=== PATIENT | female | born 1945 | race Caucasian/White ===

== ENCOUNTER 2020-07-30 11:37 | Observation (INO) | payer MEDICARE ==
[~2020-07-30] VITALS: Ht 157.5 cm; Wt 88.6 kg
[~2020-07-30 11:37] MED LIST: ALBU2.5V8 IH; ALLO300T PO; AMLO-186 PO; ASPI325T8 PO; CALC-128 PO; CALC600T60 PO; CHOL100014 PO; CHOL500016 PO; CLOP75TA57 PO; DOCU100T11 PO; GLYB6TAB3 PO; INSU100V8 SQ; LINA5TAB4 PO; LISI20TA18 PO; MELO7.5T29 PO; METF10007 PO; METF500T16 PO; MONT10TA80 PO; MORP10CA2 PO; MULT-246 PO; OMEG1CAP50 PO; OXYC1TAB22 PO; SIMV40TA18 PO; TRAM50TA PO; TRIGINTA
[2020-07-30 13:16] VITALS: BP 120/77
[2020-07-30] MEDS ORDERED: traMADol 50 MG TABLET PO PRN (13:45)
[2020-07-30 14:33] LABS: BASO # 0.1 x10^3/uL (0.0-0.2); BASO % 1 % (0-3); EOS # 0.1 x10^3/uL (0.0-0.7); EOS % 1 % (0-3); HEMATOCRIT 33.8 % (36.0-47.0); HEMOGLOBIN 10.3 g/dL (12.0-15.5); LYMPH # 2.2 x10^3/uL (1.0-4.8); LYMPH % 22 % (24-48); MEAN CORPUSCULAR HEMOGLOBIN 27 pg (25-35); MEAN CORPUSCULAR HGB CONC 31 g/dL (31-37); MEAN CORPUSCULAR VOLUME 90 fL (79-100); MONO # 0.8 x10^3/uL (0.0-1.1); MONO % 8 % (0-9); NEUT # 6.9 x10^3uL (1.8-7.7); NEUT % 69 % (31-73); PLATELET COUNT 531 x10^3/uL (140-400); RED BLOOD COUNT 3.75 x10^6/uL (3.50-5.40); RED CELL DISTRIBUTION WIDTH 19.3 % (11.5-14.5); WHITE BLOOD COUNT 10.1 x10^3/uL (4.0-11.0)
--- NOTE | 2020-07-30 14:44 | RAD ---
Chest, PA and Lateral: Technique: PA and lateral views of the chest were obtained. History: Syncope. Comparison: None. Findings: Mild cardiomegaly. Mild prominent bilateral interstitial lung markings likely interstitial infiltrate s or edema.. Moderate degenerative thoracic spine. IMPRESSION: Mild prominent bilateral interstitial lung markings likely interstitial infiltrates or edema. Electronically signed by: Rodríguez Yao MD (07/30/2020 2:42 PM) [id number]
[2020-07-30 14:46] LABS: ALBUMIN 2.3 g/dL (3.4-5.0); ALBUMIN/GLOBULIN RATIO 0.4 (1.0-1.7); CALCIUM 10.2 mg/dL (8.5-10.1); CREATININE 1.2 mg/dL (0.6-1.0); GFR 44.2; TOTAL BILIRUBIN 0.2 mg/dL (0.2-1.0); TOTAL PROTEIN 7.8 g/dL (6.4-8.2)
--- NOTE | 2020-07-30 15:15 | RAD ---
EXAMINATION: CT HEAD/BRAIN WO (CT HEAD WITHOUT IV CONTRAST) CLINICAL HISTORY: Syncope and collapse TECHNIQUE: Serial axial images without IV contrast were obtained from the vertex to the foramen magnu m. CT Dose Reduction Employed: One or more of the following individualized dose reduction techniques wer e utilized for this examination: 1. Automated exposure control 2. Adjustment of the mA and/or kV ac cording to patient size 3. Use of iterative reconstruction technique. COMPARISON: 06/11/2014 FINDINGS: Acute Change: No evidence of an acute infarct or other acute parenchymal process. Hemorrhage: No evidence of acute intracranial hemorrhage. Mass Lesion/Mass Effect: No evidence of intracranial mass or extraaxial fluid collection. No signific ant mass effect. Chronic Change: Hypoattenuation in the anterior superior cortex and subcortical white matter of the r ight frontal lobe, likely related to remote infarct but new since the comparison study. Scattered pat brianda foci of hypoattenuation in the supratentorial white matter, nonspecific but likely represents mil d microvascular ischemia. Atherosclerotic calcification of the bilateral carotid siphons. Parenchyma: Mild generalized volume loss. Parenchyma otherwise within normal limits for age. Ventricles: Ventricular enlargement concordant with degree of parenchymal volume loss. Paranasal Sinuses and Skull Base: Visualized paranasal sinuses clear. Visualized skull base and soft tissues unremarkable. IMPRESSION: No evidence of acute intracranial abnormality. Electronically signed by: Jerome Wade DO (07/30/2020 3:13 PM) [facility]
[2020-07-30] MEDS ORDERED: AMLO-187 PO (15:21)
[2020-07-30] MEDS ORDERED: ANAS1TAB47 PO (15:21)
--- NOTE | 2020-07-30 15:55 | EKG ---
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
[2020-07-30] MEDS ORDERED: VIT1TABL32 PO (16:42)
[2020-07-30] MEDS ORDERED: DOCU100C28 PO (16:42)
[2020-07-30] MEDS ORDERED: FERR159T3 PO (16:42)
[2020-07-30] MEDS ORDERED: CALC-31 PO (16:42)
[2020-07-30] MEDS ORDERED: POTA15TA9 PO (16:42)
[2020-07-30] MEDS ORDERED: BUTA1CAP27 PO (16:42)
[2020-07-30] MEDS ORDERED: AMIT10TA PO (16:42)
[2020-07-30] MEDS ORDERED: FENT1PAT15 TP (16:48)
[2020-07-30] MEDS: metFORMIN 500 MG TABLET PO SCH (18:30)
[2020-07-30] MEDS: DOCUSATE SODIUM 100 MG CAPSULE PO SCH (18:30)
[2020-07-30 19:32] VITALS: BP 108/53
[2020-07-30 19:53] LABS: BILIRUBIN,URINE NEG (NEG); CLARITY,URINE CLOUDY; COLOR,URINE STRAW; GLUCOSE,URINE NEG (NEG); NITRITE,URINE NEG (NEG); RBC,URINE >40 /HPF (0-2); UROBILINOGEN,URINE 0.2 mg/dL (0.2 mg/dL); WBC,URINE >40 /HPF (0-4)
[2020-07-30 19:54] LABS: BACTERIA,URINE MANY /HPF (0-FEW); SQUAMOUS EPITHELIAL CELL,UR FEW /LPF
[2020-07-30] MEDS ORDERED: MORPHINE SULFATE 10 MG PO SCH (21:00)
[2020-07-30] MEDS ORDERED: SIMVASTATIN 40 MG TABLET. PO SCH (21:00)
[2020-07-30] MEDS: AMITRIPTYLINE HCL 10 MG TABLET PO SCH (21:17)
[2020-07-30] MEDS: POTASSIUM CITRATE 10 MEQ TABLET.ER PO SCH (21:17)
[2020-07-30] MEDS: INSULIN GLARGINE SYRINGE. SQ SCH (21:19)
[2020-07-30] MEDS: BUTALB/APAP/CAFEIN 50/325/40MG TABLET. PO SCH (21:19)
[2020-07-30 23:08] VITALS: BP 99/66
[2020-07-31 00:07] LABS: HEMOGLOBIN A1C 5.9 % (4.8-5.6)
[2020-07-31 06:24] LABS: BASO # 0.1 x10^3/uL (0.0-0.2); BASO % 1 % (0-3); EOS # 0.2 x10^3/uL (0.0-0.7); EOS % 3 % (0-3); HEMATOCRIT 30.9 % (36.0-47.0); HEMOGLOBIN 9.5 g/dL (12.0-15.5); LYMPH # 2.5 x10^3/uL (1.0-4.8); LYMPH % 27 % (24-48); MEAN CORPUSCULAR HEMOGLOBIN 27 pg (25-35); MEAN CORPUSCULAR HGB CONC 31 g/dL (31-37); MEAN CORPUSCULAR VOLUME 89 fL (79-100); MONO % 11 % (0-9); NEUT # 5.5 x10^3uL (1.8-7.7); NEUT % 59 % (31-73); PLATELET COUNT 459 x10^3/uL (140-400); RED BLOOD COUNT 3.48 x10^6/uL (3.50-5.40); RED CELL DISTRIBUTION WIDTH 18.8 % (11.5-14.5); WHITE BLOOD COUNT 9.4 x10^3/uL (4.0-11.0)
[2020-07-31 07:35] VITALS: BP 107/71
[2020-07-31] MEDS: metFORMIN 500 MG TABLET PO SCH ×2 (08:18→17:08)
[2020-07-31] MEDS: MULTIVITAMIN I-VITE TABLET. PO SCH (08:18)
[2020-07-31] MEDS: amLODIPine BESYLATE 10 MG TABLET PO SCH (08:18)
[2020-07-31] MEDS: MONTELUKAST 10 MG TABLET. PO SCH (08:18)
[2020-07-31] MEDS: CLOPIDOGREL BISULFATE 75 MG TABLET PO SCH (08:19)
[2020-07-31] MEDS: POTASSIUM CITRATE 10 MEQ TABLET.ER PO SCH ×3 (08:19→21:00)
[2020-07-31] MEDS: ALLOPURINOL 300 MG TABLET. PO SCH (08:19)
[2020-07-31] MEDS: BUTALB/APAP/CAFEIN 50/325/40MG TABLET. PO SCH ×2 (08:19→21:05)
[2020-07-31] MEDS: LISINOPRIL 20 MG TABLET PO SCH (08:20)
[2020-07-31] MEDS: FERROUS SULFATE 325 MG TABLET. PO SCH (08:21)
--- NOTE | 2020-07-31 08:33 | PDOC2 ---
CARDIAC CONSULT DATE OF CONSULT DOS: DATE: 07/31/20 TIME: 08:28 REASON FOR CONSULT Reason for Consult Elevated troponin REFERRING PHYSICIAN Referring Physician Dr. Hoyos SOURCE Source: Chart review, Patient HPI History of Present Illness This is a 74 yo male who was a direct admit from Dr. Hoyos's office secondary to weakness and fall. Troponin noted to be mildly elevated, which prompted this consult. Patient reports weakness in her bilateral legs since Wednesday. Has had a couple of falls. Reports that her legs give out. Denies any precipitating dizziness or LOC. Patient reports that she has had similar symptoms associated with UTI two times prior. Was reportedly orthostatic in office from sitting to standing. She denies any chest pain, palpitations, dizziness, diaphoresis, or nausea/vomiting. UA notable for UTI. PAST MEDICAL HISTORY Cardiovascular: HTN, hyperipidemia, Other (carotid disease) CENTRAL NERVOUS SYSTEM: CVA Heme/Onc: Cancer (breast, bladder) Musculoskeletal: Osteoarthritis Renal/: UTI Endocrine: Diabetes PAST SURGICAL HISTORY Past Surgical History: Hysterectomy FAMILY HISTORY Family History: Cancer, Diabetes, Hypertension SOCIAL HISTORY Smoke: Quit (3 years ago ) ALCOHOL: none Drugs: None CURRENT MEDICATIONS Current Medications Current Medications Allopurinol (Zyloprim) 300 mg DAILY PO Last administered on 07/31/20at 08:19; Start 07/31/20 at 09:00 Amlodipine Besylate (Norvasc) 5 mg DAILY PO ; Start 07/31/20 at 09:00; Status Cancel Clopidogrel Bisulfate (Plavix) 75 mg DAILY PO Last administered on 07/31/20at 08:19; Start 07/31/20 at 09:00 Insulin Glargine (Lantus Syringe) 10 unit HS SQ Last administered on 07/30/20at 21:19; Start 07/30/20 at 21:00 Linagliptin (Tradjenta) 5 mg DAILY PO ; Start 07/31/20 at 09:00; Status Cancel Lisinopril (Prinivil) 20 mg DAILY PO Last administered on 07/31/20at 08:20; Start 07/31/20 at 09:00 Metformin HCl (Glucophage) 1,000 mg BIDWMEALS PO Last administered on 07/31/20at 08:18; Start 07/30/20 at 17:00 Montelukast Sodium (Singulair) 10 mg DAILY PO Last administered on 07/31/20at 08:18; Start 07/31/20 at 09:00 Simvastatin (Zocor) 40 mg QHS PO ; Start 07/30/20 at 21:00; Status Cancel Tramadol HCl (Ultram) 50 mg PRN BID PRN PO PAIN; Start 07/30/20 at 13:45; Status Cancel Calcium Carbonate/ Glycine (Oscal) 1,000 mg DAILY PO ; Start 07/31/20 at 09:00; Status Cancel Vitamin D (Vitamin D3) 5,000 unit DAILY PO ; Start 07/31/20 at 09:00; Status Cancel Glyburide (Glynase) 6 mg BIDWMEALS PO Last administered on 07/31/20at 08:18; Start 07/30/20 at 17:00 Non-Formulary Medication (Morphine Sulfate (Morphine Sulfate Er)) 10 mg BID PO ; Start 07/30/20 at 21:00; Status UNV Amitriptyline HCl (Elavil) 30 mg QHS PO Last administered on 07/30/20at 21:17; Start 07/30/20 at 21:00 Amlodipine Besylate (Norvasc) 10 mg DAILY PO Last administered on 07/31/20at 08:18; Start 07/31/20 at 09:00 Anastrozole (Arimidex) 1 mg DAILY PO ; Start 07/31/20 at 09:00 Docusate Sodium (Colace) 300 mg DAILY16 PO Last administered on 07/30/20at 18:30; Start 07/30/20 at 17:30 Fentanyl (Duragesic 25mcg/ Hr) 1 patch Q3DAYS TD ; Start 08/01/20 at 09:00 Multivitamins/ Minerals (I-Gerri) 1 tab DAILY PO Last administered on 07/31/20at 08:18; Start 07/31/20 at 09:00 Acetaminophen/ Butalbital/ Caffeine (Fioricet) 1 tab BID PO Last administered on 07/31/20at 08:19; Start 07/30/20 at 21:00 Calcium/Vitamin D (Oscal D 500mg/ 200uts) 1 tab DAILY16 PO ; Start 07/31/20 at 16:00 Ferrous Sulfate (Feosol) 325 mg DAILY PO Last administered on 07/31/20at 08:21; Start 07/31/20 at 09:00 Potassium Citrate (Urocit-K) 10 meq BID PO ; Start 07/30/20 at 21:00 Ceftriaxone Sodium 1 gm/ Sodium Chloride 50 ml @ 100 mls/hr Q24H IV Last administered on 07/30/20at 21:20; Start 07/30/20 at 21:00 Active Scripts Active Reported FENTANYL 25mcg/hr (Fentanyl) 1 Each Patch.td72 1 Patch TP Q3DAYS Calcium 500 + D Tablet (Calcium Carbonate/Vitamin D3) 1 Each Tablet 1 Tab PO DAILY16 30 Days Docusate Sodium 100 Mg Capsule 3 Cap PO DAILY16 30 Days Hhfeflol-Bvhqsehmufofa-Wzzg Cp (Butalb/Acetaminophen/Caffeine) 1 Each Capsule 1 Cap PO BID 30 Days Potassium Citrate Er (Potassium Citrate) 15 Meq Tablet.er 10 Meq PO BID Amitriptyline Hcl 10 Mg Tablet 3 Tab PO QHS Iron (Ferrous Sulfate, Dried) 159 Mg Tablet.er 65 Mg PO DAILY Ocuvite Tablet (Vit A,C & E/Lutein/Minerals) 1 Each Tablet 1 Tab PO DAILY 30 Da ys Arimidex (Anastrozole) 1 Mg Tablet 1 Mg PO DAILY Amlodipine Besylate 10 Mg Tablet 1 Tab PO DAILY Fish Oil 1,000 Mg Softgel ([place]-3 Fatty Acids/Fish Oil) 1 Each Capsule 1 Each PO BID Metformin Hcl 500 Mg Tablet 2 Tab PO BID Plavix (Clopidogrel Bisulfate) 75 Mg Tablet 1 Tab PO DAILY Allopurinol 300 Mg Tablet 1 Tab PO DAILY Multi-Vitamin Daily (Multivitamin) 1 Each Tablet 1 Each PO Lantus (Insulin Glargine,Hum.rec.anlog) 100 Unit/1 Ml Vial 10 Unit SQ HS Montelukast Sodium Tablet (Montelukast Sodium) 10 Mg Tablet 1 Tab PO DAILY Lisinopril 20 Mg Tablet 1 Tab PO DAILY Glyburide Micronized (Glyburide,Micronized) 6 Mg Tablet 6 Mg PO BID ALLERGIES Allergies: Coded Allergies: trazodone (Verified Allergy, Intermediate, Hives, 03/30/14) carisoprodol (Verified Allergy, Mild, hives, 03/30/14) celecoxib (Verified Allergy, Mild, hives, 03/30/14) ciprofloxacin (Verified Allergy, Mild, hives, 03/30/14) codeine (Verified Allergy, Mild, hives, 03/30/14) ROS Review of Systems 14 point ROS conducted with pertinent positives noted above in HPI PHYSICAL EXAM General: Alert, Oriented X3, Cooperative, No acute distress HEENT: Atraumatic, Mucous membr. moist/pink Lungs: Clear to auscultation Heart: Regular rate Abdomen: Soft, No tenderness Extremities: No edema, Normal pulses Skin: No breakdown Neuro: Normal speech, Sensation intact Psych/Mental Status: Mental status NL, Mood NL MUSCULOSKELETAL: Osteoarthritic changes both hands VITALS Vital Signs Vital Signs Date Time Temp Pulse Resp B/P (MAP) Pulse Ox O2 Delivery O2 Flow Rate FiO2 07/31/20 08:20 85 107/71 07/31/20 07:35 98.3 20 98 Room Air LABS LABS Laboratory Tests Test 07/30/20 14:23 07/30/20 18:55 07/30/20 19:37 07/30/20 20:30 White Blood Count 10.1 x10^3/uL (4.0-11.0) Red Blood Count 3.75 x10^6/uL (3.50-5.40) Hemoglobin 10.3 g/dL (12.0-15.5) Hematocrit 33.8 % (36.0-47.0) Mean Corpuscular Volume 90 fL (79-100) Mean Corpuscular Hemoglobin 27 pg (25-35) Mean Corpuscular Hemoglobin Concent 31 g/dL (31-37) Red Cell Distribution Width 19.3 % (11.5-14.5) Platelet Count 531 x10^3/uL (140-400) Neutrophils (%) (Auto) 69 % (31-73) Lymphocytes (%) (Auto) 22 % (24-48) Monocytes (%) (Auto) 8 % (0-9) Eosinophils (%) (Auto) 1 % (0-3) Basophils (%) (Auto) 1 % (0-3) Neutrophils # (Auto) 6.9 x10^3uL (1.8-7.7) Lymphocytes # (Auto) 2.2 x10^3/uL (1.0-4.8) Monocytes # (Auto) 0.8 x10^3/uL (0.0-1.1) Eosinophils # (Auto) 0.1 x10^3/uL (0.0-0.7) Basophils # (Auto) 0.1 x10^3/uL (0.0-0.2) D-Dimer (Bhavna) 2.88 mg/L (0.00-0.50) Sodium Level 137 mmol/L (136-145) Potassium Level 5.0 mmol/L (3.5-5.1) Chloride Level 105 mmol/L (98-107) Carbon Dioxide Level 18 mmol/L (21-32) Anion Gap 14 (6-14) Blood Urea Nitrogen 43 mg/dL (7-20) Creatinine 1.2 mg/dL (0.6-1.0) Estimated GFR (Cockcroft-Gault) 44.2 BUN/Creatinine Ratio 36 (6-20) Glucose Level 160 mg/dL (70-99) Hemoglobin A1c 5.9 % (4.8-5.6) Calcium Level 10.2 mg/dL (8.5-10.1) Total Bilirubin 0.2 mg/dL (0.2-1.0) Aspartate Amino Transf (AST/SGOT) 37 U/L (15-37) Alanine Aminotransferase (ALT/SGPT) 31 U/L (14-59) Alkaline Phosphatase 215 U/L (46-116) Creatine Kinase 298 U/L (26-192) Troponin I Quantitative < 0.017 ng/mL (0-0.055) 0.326 ng/mL (0-0.055) ZP-Jqn-Y-Type Natriuretic Peptide 1807 pg/mL (0-124) Total Protein 7.8 g/dL (6.4-8.2) Albumin 2.3 g/dL (3.4-5.0) Albumin/Globulin Ratio 0.4 (1.0-1.7) Urine Collection Type Unknown Urine Color Straw Urine Clarity Cloudy Urine pH 5.5 Urine Specific [place] 1.015 Urine Protein 100 mg/dl (NEG-TRACE) Urine Glucose (UA) Neg mg/dL (NEG) Urine Ketones (Stick) Trace mg/dL (NEG) Urine Blood Mod (NEG) Urine Nitrite Neg (NEG) Urine Bilirubin Neg (NEG) Urine Urobilinogen Dipstick 0.2 mg/dL (0.2 mg/dL) Urine Leukocyte Esterase Large (NEG) Urine RBC >40 /HPF (0-2) Urine WBC >40 /HPF (0-4) Urine Squamous Epithelial Cells Few /LPF Urine Bacteria Many /HPF (0-FEW) Glucose (Fingerstick) 204 mg/dL (70-99) Test 07/31/20 05:54 07/31/20 07:49 White Blood Count 9.4 x10^3/uL (4.0-11.0) Red Blood Count 3.48 x10^6/uL (3.50-5.40) Hemoglobin 9.5 g/dL (12.0-15.5) Hematocrit 30.9 % (36.0-47.0) Mean Corpuscular Volume 89 fL (79-100) Mean Corpuscular Hemoglobin 27 pg (25-35) Mean Corpuscular Hemoglobin Concent 31 g/dL (31-37) Red Cell Distribution Width 18.8 % (11.5-14.5) Platelet Count 459 x10^3/uL (140-400) Neutrophils (%) (Auto) 59 % (31-73) Lymphocytes (%) (Auto) 27 % (24-48) Monocytes (%) (Auto) 11 % (0-9) Eosinophils (%) (Auto) 3 % (0-3) Basophils (%) (Auto) 1 % (0-3) Neutrophils # (Auto) 5.5 x10^3uL (1.8-7.7) Lymphocytes # (Auto) 2.5 x10^3/uL (1.0-4.8) Monocytes # (Auto) 1.0 x10^3/uL (0.0-1.1) Eosinophils # (Auto) 0.2 x10^3/uL (0.0-0.7) Basophils # (Auto) 0.1 x10^3/uL (0.0-0.2) Creatine Kinase 136 U/L (26-192) Troponin I Quantitative 0.272 ng/mL (0-0.055) Glucose (Fingerstick) 94 mg/dL (70-99) ECHOCARDIOGRAM Echocardiogram 06/02/17 - 2-D + DOPPLER ECHOCARDIOGRAM Echocardiographic Findings Left Ventricle Normal size and shape. Mild concentric hypertrophy. Normal ejection fraction. Grade I (mild) left ventricular diastolic dysfunction. Right Ventricle Normal size and ejection fraction. Moderate hypertrophy. Left Atrium Normal size. An interatrial septal aneurysm is present. Right Atrium Normal size. IVC/SVC Normal central venous pressure (0-5 mm Hg). Mitral Valve Normal valve structure. No stenosis. Trace regurgitation. Tricuspid Valve Normal valve structure. No stenosis. Trace regurgitation. Aortic Valve Normal valve structure. No stenosis. No regurgitation. Pulmonary Normal valve structure. No regurgitation. Aorta Normal aorta. Pericardium Pericardium is normal. No pericardial effusion. ASSESSMENT/PLAN Assessment/Plan 1. Weakness, falls 2. Orthostatic hypotension 3. CARA 4. Mild troponin elevation; peak 0.3. Most probably type II, demand ischemia. CP free. EKG without significant acute changes as compared to previous in 05/2014. [facility] with [facility] 5. Hypertension; low end 6. Hyperlipidemia 7. Diabetes, II 8. H/o CVA 9. Elevated d-dimer; VQ scan with low probability for PE 10. UTI Recommendations Repeat orthos IV fluid bolus Encouraged adequate oral hydration Echo to assess LV systolic function; this can be conducted as an outpatient Ongoing treatment of UTI Secondary prevention Consider outpatient ischemic evaluation given risk factors JANUARY HERNANDEZ APRN July 31, 2020 08:33
--- NOTE | 2020-07-31 08:40 | RAD ---
NM LUNG PERFUSION SCAN History:Reason: + d dimer s oa / Spl. Instructions: / History: Comparison: Chest x-ray July 30, 2020 Findings: Perfusion examination was performed. Perfusion images were acquired after the patient was i njected with 5.5 mCi of technetium 99m MAA. Left lower lung matched perfusion defect related to cardiomegaly. No medium or large mismatch perfusi on defects identified comparison to chest x-ray. Impression: 1. Low probability for pulmonary embolic disease. Electronically signed by: Tony Hernandez DO (07/31/2020 8:37 AM) [id number]
[2020-07-31] MEDS ORDERED: LINAGLIPTIN 5 MG TABLET PO SCH (09:00)
[2020-07-31] MEDS ORDERED: amLODIPine BESYLATE 5 MG TABLET PO SCH (09:00)
[2020-07-31] MEDS ORDERED: IV NORMAL SALINE 500ML 500 ML IV ONE (09:00)
[2020-07-31] MEDS ORDERED: CHOLECALCIFEROL (VITAMIN D3) 1,000 UNIT TABLET PO SCH (09:00)
[2020-07-31] MEDS ORDERED: CALCIUM CARBONATE 500 MG TABLET PO SCH (09:00)
--- NOTE | 2020-07-31 10:49 | EKG ---
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
[2020-07-31] MEDS: ANASTROZOLE 1 MG TABLET PO SCH (10:56)
[2020-07-31 11:25] VITALS: BP 103/69
[2020-07-31 11:26] VITALS: BP_SYST 134; BP_SYST 142; BP_DIAS 88; BP_DIAS 89
[2020-07-31 14:50] VITALS: BP 120/67
[2020-07-31] MEDS ORDERED: CALCIUM CARB/VIT D3 500/200 TABLET PO SCH (16:00)
[2020-07-31] MEDS: DOCUSATE SODIUM 100 MG CAPSULE PO SCH (16:36)
[2020-07-31] MEDS: LACTOBACILLUS RHAMNOSUS GG 1 CAPSULE. PO SCH (21:04)
[2020-07-31] MEDS: AMITRIPTYLINE HCL 10 MG TABLET PO SCH (21:04)
[2020-07-31 21:10] VITALS: BP 126/76
[2020-07-31] MEDS: INSULIN GLARGINE SYRINGE. SQ SCH (21:28)
--- NOTE | 2020-07-31 22:59 | PN ---
DATE: 07/31/2020 SUBJECTIVE: Patient is a 74-year-old female with multiple falls here in the last week or so, extreme weakness in her legs, unable to support her weight. The patient otherwise says she is feeling a little better this morning, but still very weak, not able to support herself. PHYSICAL EXAMINATION: VITAL SIGNS: Blood pressure 142/89 and setting was 134/88, pulse; however, went from staying about 110 on the average, pulse ox on room air 93%, respiratory rate 20, afebrile. GENERAL: The patient is alert and oriented, somewhat pale appearing. LUNGS: Diminished coarse breath sounds throughout. CARDIOVASCULAR: Regular sinus rhythm, occasional dropped beat. ABDOMEN: Soft, protuberant. Some diffuse tenderness. EXTREMITIES: Marked atrophy to the lower extremities with poor muscle tone there. LABORATORY DATA: The patient's labs have been basically showing a slight anemia at 9.5 and 30, platelets are elevated at 460, roughly increased monocytes. Chemistries - 159 blood sugar. Troponins have been elevated to 0.272. Cardiology is aware of these. A1c 5.9. BNP of 1800. BUN and creatinine [address] of the head unremarkable. Pulmonary perfusion scan negative. Chest x-ray shows increase in vascular congestion. The patient otherwise notes some improvement, but still very weak, not able to review PT, OT report. IMPRESSION: Therefore, generalized weakness, multiple falls, sinus tachycardia, type 2 diabetes, morbid obesity, severe protein malnutrition, leukorrhea, urinary tract infection, elevated D-dimer but VQ was noted to be negative. PLAN: We will continue on IV antibiotic therapy. Cardiology is to review the patient and make further evaluation on her in that regard and PT, OT continues to help refine the strength in her legs. DEIDRA DR: Ling TID: [id number]
[2020-08-01 07:00] VITALS: BP 115/75
--- NOTE | 2020-08-01 07:58 | PDOC ---
CARDIO Progress Notes Date & Time Date of Service DATE: 08/01/20 TIME: 07:53 Time of Evaluation 07:53 Subjective Notes feeling better today. No chest pain, shortness of breath Vitals Vitals Vital Signs Date Time Temp Pulse Resp B/P (MAP) Pulse Ox O2 Delivery O2 Flow Rate FiO2 07/31/20 21:10 98.5 91 20 126/76 (93) 97 Room Air Weight Weight [ ] Input and Output I.O. Intake and Output 08/01/20 07:00 Intake Total 1230 ml Output Total 1 ml Balance 1229 ml Intake Oral 1180 ml IV Total 50 ml Output Urine Total 1 ml # Voids 6 # Bowel Movements 2 Laboratory Labs Laboratory Tests Test 07/30/20 14:23 07/30/20 18:55 07/30/20 19:37 07/30/20 20:30 White Blood Count 10.1 x10^3/uL (4.0-11.0) Red Blood Count 3.75 x10^6/uL (3.50-5.40) Hemoglobin 10.3 g/dL (12.0-15.5) Hematocrit 33.8 % (36.0-47.0) Mean Corpuscular Volume 90 fL (79-100) Mean Corpuscular Hemoglobin 27 pg (25-35) Mean Corpuscular Hemoglobin Concent 31 g/dL (31-37) Red Cell Distribution Width 19.3 % (11.5-14.5) Platelet Count 531 x10^3/uL (140-400) Neutrophils (%) (Auto) 69 % (31-73) Lymphocytes (%) (Auto) 22 % (24-48) Monocytes (%) (Auto) 8 % (0-9) Eosinophils (%) (Auto) 1 % (0-3) Basophils (%) (Auto) 1 % (0-3) Neutrophils # (Auto) 6.9 x10^3uL (1.8-7.7) Lymphocytes # (Auto) 2.2 x10^3/uL (1.0-4.8) Monocytes # (Auto) 0.8 x10^3/uL (0.0-1.1) Eosinophils # (Auto) 0.1 x10^3/uL (0.0-0.7) Basophils # (Auto) 0.1 x10^3/uL (0.0-0.2) D-Dimer (Bhavna) 2.88 mg/L (0.00-0.50) Sodium Level 137 mmol/L (136-145) Potassium Level 5.0 mmol/L (3.5-5.1) Chloride Level 105 mmol/L (98-107) Carbon Dioxide Level 18 mmol/L (21-32) Anion Gap 14 (6-14) Blood Urea Nitrogen 43 mg/dL (7-20) Creatinine 1.2 mg/dL (0.6-1.0) Estimated GFR (Cockcroft-Gault) 44.2 BUN/Creatinine Ratio 36 (6-20) Glucose Level 160 mg/dL (70-99) Hemoglobin A1c 5.9 % (4.8-5.6) Calcium Level 10.2 mg/dL (8.5-10.1) Total Bilirubin 0.2 mg/dL (0.2-1.0) Aspartate Amino Transf (AST/SGOT) 37 U/L (15-37) Alanine Aminotransferase (ALT/SGPT) 31 U/L (14-59) Alkaline Phosphatase 215 U/L (46-116) Creatine Kinase 298 U/L (26-192) Troponin I Quantitative < 0.017 ng/mL (0-0.055) 0.326 ng/mL (0-0.055) EU-Xeo-F-Type Natriuretic Peptide 1807 pg/mL (0-124) Total Protein 7.8 g/dL (6.4-8.2) Albumin 2.3 g/dL (3.4-5.0) Albumin/Globulin Ratio 0.4 (1.0-1.7) Thyroid Stimulating Hormone (TSH) 0.744 uIU/mL (0.358-3.740) Urine Collection Type Unknown Urine Color Straw Urine Clarity Cloudy Urine pH 5.5 Urine Specific [place] 1.015 Urine Protein 100 mg/dl (NEG-TRACE) Urine Glucose (UA) Neg mg/dL (NEG) Urine Ketones (Stick) Trace mg/dL (NEG) Urine Blood Mod (NEG) Urine Nitrite Neg (NEG) Urine Bilirubin Neg (NEG) Urine Urobilinogen Dipstick 0.2 mg/dL (0.2 mg/dL) Urine Leukocyte Esterase Large (NEG) Urine RBC >40 /HPF (0-2) Urine WBC >40 /HPF (0-4) Urine Squamous Epithelial Cells Few /LPF Urine Bacteria Many /HPF (0-FEW) Glucose (Fingerstick) 204 mg/dL (70-99) Test 07/31/20 05:54 07/31/20 07:49 07/31/20 11:41 07/31/20 21:07 White Blood Count 9.4 x10^3/uL (4.0-11.0) Red Blood Count 3.48 x10^6/uL (3.50-5.40) Hemoglobin 9.5 g/dL (12.0-15.5) Hematocrit 30.9 % (36.0-47.0) Mean Corpuscular Volume 89 fL (79-100) Mean Corpuscular Hemoglobin 27 pg (25-35) Mean Corpuscular Hemoglobin Concent 31 g/dL (31-37) Red Cell Distribution Width 18.8 % (11.5-14.5) Platelet Count 459 x10^3/uL (140-400) Neutrophils (%) (Auto) 59 % (31-73) Lymphocytes (%) (Auto) 27 % (24-48) Monocytes (%) (Auto) 11 % (0-9) Eosinophils (%) (Auto) 3 % (0-3) Basophils (%) (Auto) 1 % (0-3) Neutrophils # (Auto) 5.5 x10^3uL (1.8-7.7) Lymphocytes # (Auto) 2.5 x10^3/uL (1.0-4.8) Monocytes # (Auto) 1.0 x10^3/uL (0.0-1.1) Eosinophils # (Auto) 0.2 x10^3/uL (0.0-0.7) Basophils # (Auto) 0.1 x10^3/uL (0.0-0.2) Creatine Kinase 136 U/L (26-192) Troponin I Quantitative 0.272 ng/mL (0-0.055) Triglycerides Level 137 mg/dL (0-150) Cholesterol Level 126 mg/dL (0-200) LDL Cholesterol, Calculated 58 mg/dL (0-100) VLDL Cholesterol, Calculated 27 mg/dL (0-40) Non-HDL Cholesterol Calculated 85 mg/dL (0-129) HDL Cholesterol 41 mg/dL (40-60) Cholesterol/HDL Ratio 3.0 Glucose (Fingerstick) 94 mg/dL (70-99) 159 mg/dL (70-99) 150 mg/dL (70-99) Physical Exams HEENT: Neck Supple W Full Motion Chest: Symmetric Lungs: Clear to Auscultation Heart: RRR Abdomen: Soft N/T Extremities: No Edema Neurology: alert, oriented, follow commands Assessment Assessment 1. Weakness, falls 2. Orthostatic hypotension; orhtos negative 07/31/20 3. CARA 4. Mild troponin elevation; peak 0.3. Most probably type II, demand ischemia. CP free. EKG without significant acute changes as compared to previous in 05/2014 . Follows with [facility] 5. Hypertension; improved 6. Hyperlipidemia; LDL 58 7. Diabetes, II 8. H/o CVA 9. Elevated d-dimer; VQ scan with low probability for PE 10. UTI Recommendations Encouraged adequate oral hydration Echo to assess LV systolic function; this can be conducted as an outpatient Ongoing treatment of UTI Secondary prevention Consider outpatient ischemic evaluation given risk factors Supportive care JANUARY HERNANDEZ APRN August 01, 2020 07:58
[2020-08-01] MEDS: CLOPIDOGREL BISULFATE 75 MG TABLET PO SCH (08:17)
[2020-08-01] MEDS: MULTIVITAMIN I-VITE TABLET. PO SCH (08:17)
[2020-08-01] MEDS: LACTOBACILLUS RHAMNOSUS GG 1 CAPSULE. PO SCH (08:17)
[2020-08-01] MEDS: metFORMIN 500 MG TABLET PO SCH (08:17)
[2020-08-01] MEDS: MONTELUKAST 10 MG TABLET. PO SCH (08:17)
[2020-08-01] MEDS: FERROUS SULFATE 325 MG TABLET. PO SCH (08:17)
[2020-08-01] MEDS: BUTALB/APAP/CAFEIN 50/325/40MG TABLET. PO SCH (08:17)
[2020-08-01] MEDS: LISINOPRIL 20 MG TABLET PO SCH (08:18)
[2020-08-01] MEDS: ALLOPURINOL 300 MG TABLET. PO SCH (08:18)
[2020-08-01] MEDS: amLODIPine BESYLATE 10 MG TABLET PO SCH (08:19)
[2020-08-01] MEDS: ANASTROZOLE 1 MG TABLET PO SCH (08:26)
[2020-08-01] MEDS: POTASSIUM CITRATE 10 MEQ TABLET.ER PO SCH (08:48)
[2020-08-01] MEDS ORDERED: fentaNYL 25MCG/HR 1 PATCH PATCH TD SCH (09:00)
[2020-08-01 10:45] VITALS: BP_SYST 123; BP_SYST 147; BP_DIAS 76; BP_DIAS 85
[2020-08-01 10:46] VITALS: BP 140/87
[2020-08-01] MEDS ORDERED: TRAM50TA PO (13:24)
[2020-08-01] MEDS ORDERED: OXYC1TAB20 PO (13:24)
[2020-08-01] MEDS ORDERED: CEFP200T PO (13:28)
== END 2020-08-01 14:29 | disposition still patient (30) ==
LOC: INTOOBSV 12:29 → 1 SOUTH 12:29
PROVIDERS: ADMIT Family Medicine; ATTEND Family Medicine
DX: R53.1 Weakness (principal); N17.9 Acute kidney failure, unspecified; I95.1 Orthostatic hypotension; E11.22 Type 2 diabetes mellitus with diabetic chronic kidney disease; I10 Essential (primary) hypertension; R77.8 Other specified abnormalities of plasma proteins; E78.5 Hyperlipidemia, unspecified; E66.01 Morbid (severe) obesity due to excess calories; I24.8 Other forms of acute ischemic heart disease; R29.6 Repeated falls; N89.8 Other specified noninflammatory disorders of vagina; R00.0 Tachycardia, unspecified; E43 Unspecified severe protein-calorie malnutrition; R79.89 Other specified abnormal findings of blood chemistry; N39.0 Urinary tract infection, site not specified; Z85.3 Personal history of malignant neoplasm of breast; Z86.73 Personal history of transient ischemic attack (TIA), and cerebral infarction without residual deficits; Z90.710 Acquired absence of both cervix and uterus; Z68.35 Body mass index [BMI] 35.0-35.9, adult; Z91.81 History of falling; Z79.899 Other long term (current) drug therapy; Z98.890 Other specified postprocedural states
CPT/HCPCS: 36415; 70450; 71046; 78580; 80053; 80061; 81001; 82550; 82947; 83036; 83880; 84443; 84484; 85025; 85379; 87077; 87086; 87186; 93005; 96361; 96365; 96366; 97110; 97116; 97162; 97166; 97530; 97535; A9540; G0378; G0379; J0696; J1815; J7040; 96374

== ENCOUNTER 2020-10-12 06:34 | Emergency (ER) | payer MEDICARE ==
[~2020-10-12] VITALS: Ht 157.5 cm; Wt 80.6 kg
[~2020-10-12 06:34] MED LIST changes: +AMIT10TA PO; +AMLO-187 PO; +ANAS1TAB47 PO; +BUTA1CAP27 PO; +CALC-31 PO; +CEFP200T PO; +DOCU100C28 PO; +EPINEPHrine SYRINGE 1 MG/10 ML SYRINGE ONE; +FENT1PAT15 TP; +FERR159T3 PO; +OXYC1TAB20 PO; +POTA15TA9 PO; +VIT1TABL32 PO
[2020-10-12 06:35] VITALS: BP 0/0
--- NOTE | 2020-10-12 08:09 | PHYS DOC ---
Past History Past Medical History: Arthritis, Asthma, Diabetes Past Surgical History: Cholecystectomy, Hysterectomy, Tonsillectomy Alcohol Use: None Drug Use: None General Adult EDM: Chief Complaint: CPR/FULL ARREST HPI: HPI: 74-year-old female presents via EMS as a CODE BLUE. The entire history comes from EMS reports and family. The patient was at home sitting on the toilet and she began to have slurred and garbled speech and then lost consciousness. Har[facility] alexandery immediately called EMS. They maintained the patient upright on the toilet and just as EMS arrived, the patient stopped breathing. EMS immediately began CPR. The patient was given 4 rounds of epinephrine in route to the hospital. At no time did they have pulse. She was persistently in asystole. The patient did not have any recent falls or trauma. Review of Systems: Review of Systems: Unable to perform due to patient critical condition Allergies: Allergies: Allergies Coded Allergies Type Severity Reaction Last Updated Verified trazodone Allergy Intermediate Hives 03/30/14 Yes carisoprodol Allergy Mild hives 03/30/14 Yes celecoxib Allergy Mild hives 03/30/14 Yes ciprofloxacin Allergy Mild hives 03/30/14 Yes codeine Allergy Mild hives 03/30/14 Yes Physical Exam: PE: Constitutional: Well developed, well nourished, obese, severe acute distress. [] HENT: Normocephalic, atraumatic, bilateral external ears normal, oropharynx moist, no oral exudates, nose normal. [] Eyes: Pupils fixed, no corneal reflex, conjunctiva normal, no discharge. [] Neck: supple, no signs of trauma. [] Cardiovascular: Asystole [] Lungs & Thorax: Bilateral breath sounds coarse with good air movement [] Abdomen: soft, no masses, no pulsatile masses. [] Skin: cool, dry, no erythema. [] Back: No signs of trauma. [] Extremities: no cyanosis, no clubbing, no edema. [] Neurologic: Unconscious, unresponsive [] Psychologic: Unable to perform. [] EKG: EKG: [] Radiology/Procedures: Radiology/Procedures: [] Heart Score: C/O Chest Pain: N/A Risk Factors: Risk Factors: DM, Current or recent (<one month) smoker, HTN, HLP, family history of CAD, obesity. Risk Scores: Score 0 - 3: 2.5% MACE over next 6 weeks - Discharge Home Score 4 - 6: 20.3% MACE over next 6 weeks - Admit for Clinical Observation Score 7 - 10: 72.7% MACE over next 6 weeks - Early Invasive Strategies Course & Med Decision Making: Course & Med Decision Making Pertinent Labs and Imaging studies reviewed. (See chart for details) On arrival, the patient was transferred over to our bed. A Dusty CPR device was in place. It was in adequate position with good compressions. We initially had no pulse. We continued multiple rounds of epinephrine. There was a time when pulseless electrical activity was present, but we never got a pulse. I placed bedside ultrasound on the patient's chest for a 4 view of the heart. There was minimal movement of the upper chambers. No significant movement of the left ventricle. We completed at least 4 rounds of epinephrine with continuous compressions. The eye gel was in place and providing adequate ventilation so intubation was not performed. The patient's pupils were fixed and dilated. She had no corneal reflex. Despite all of our efforts the patient . Time of 6:49 AM. [] Dragon Disclaimer: Dragon Disclaimer: This electronic medical record was generated, in whole or in part, using a voice recognition dictation system. Departure Departure: Impression: Primary Impression: Cardiopulmonary arrest Disposition: 20 Condition: Referrals: ALICJA CHOWDARY MD (PCP) ILDA NOEL DO Oct 12, 2020 08:09
== END 2020-10-12 06:49 ==
LOC: ER 06:34
DX: I46.9 Cardiac arrest, cause unspecified (principal); M19.90 Unspecified osteoarthritis, unspecified site; J45.909 Unspecified asthma, uncomplicated; E11.9 Type 2 diabetes mellitus without complications; Z88.8 Allergy status to other drugs, medicaments and biological substances; Z88.1 Allergy status to other antibiotic agents; Z88.5 Allergy status to narcotic agent
CPT/HCPCS: 36415; 92950; 99285; J0171